=== PATIENT | male | born 1970 | race Caucasian/White ===

== ENCOUNTER 2024-06-11 07:12 | Emergency (ER) | payer BC ==
[2024-06-11] MEDS: Acetaminophen 500 MG Tab PO ONE (08:06)
[2024-06-11] MEDS: Diazepam 2 MG Tab PO ONE (08:06)
[2024-06-11] MEDS: Ketorolac 30 MG/ML SDV IM ONE (08:06)
[2024-06-11] MEDS: Lidocaine 4% 1 each Patch TOP ONE (08:08)
== END 2024-06-11 08:30 | disposition home or self-care (01) ==
LOC: MW.ED 07:12
DX: M25.551 Pain in right hip (principal); Z75.8 Other problems related to medical facilities and other health care
CPT/HCPCS: 96372; 99283; A9270; J1885